=== PATIENT | male | born 1995 | race Caucasian/White ===

== ENCOUNTER 2017-08-05 16:54 | Emergency (ER) | payer OTHER ==
[~2017-08-05] VITALS: Ht 170.2 cm; Wt 69.0 kg
[2017-08-05 16:59] VITALS: BP 132/66; PULSE 86; RESP 16; TEMP 97.6; O2SAT 97
[2017-08-05] MEDS ORDERED: PROPARACAINE HCL 0.5% OPHT SOLN 15 ML BTL EACH EYE ONE (17:15)
[2017-08-05] MEDS ORDERED: ERYTOIN10 RIGHT EYE (17:34)
[2017-08-05] MEDS ORDERED: KETO1SOL3 RIGHT EYE (17:34)
--- NOTE | 2017-08-05 17:46 | PD ---
HPI Chief Complaint: Eye Problems/Injury Time Seen by Provider: 17:25 Travel History International Travel<30 days: No Contact w/Intl Traveler<30days: No Traveled to known affect area: No History of Present Illness HPI 22-year-old male presents to the emergency department for evaluation of right eye irritation that started as he was using a table saw, cutting wood today. Patient states that he felt like he got something in his eye. Patient states that he has irritation, more than pain. Patient denies photophobia, blurred vision, headache. Says he did try to irrigate however, this is not completely reduced his symptoms. He does not wear contact lenses or corrective lenses. Denies chronic medical issues medication use. He actually rode his motorcycle to the emergency department today. [facility] Past Medical History Medical History: Denies Significant Hx Tetanus Vaccination: < 5 Years Influenza Vaccination: Yes ?: Not Past Surgical History Tonsillectomy: Yes Social History Alcohol Use: Yes (SOCIAL) Tobacco Use: No Substance Use: No Allergies-Medications (Allergen,Severity, Reaction): Coded Allergies: No Known Allergies (Unverified , 08/05/17) Reported Meds & Prescriptions Reported Meds & Active Scripts Active Acular Opth Drops (Ketorolac Tromethamine) 0.5% Drops 1 Drop RIGHT EYE QID Erythromycin Opth Oint 5 Mg/Gm Oint 1 Applic RIGHT EYE BID 7 Days Ok to substitute solution or suspension as needed. Review of Systems Except as stated in HPI: all other systems reviewed are Neg Physical Exam Narrative GENERAL: Well-nourished, well-developed patient. SKIN: Focused skin assessment warm/dry. HEAD: Normocephalic. EYES: No scleral icterus. Mild scleral injection. No obvious foreign body. Noelle sign negative. No fluorescein uptake. NECK: Supple, trachea midline. No JVD or lymphadenopathy. CARDIOVASCULAR: Regular rate and rhythm without murmurs, gallops, or rubs. RESPIRATORY: Breath sounds equal bilaterally. No accessory muscle use. GASTROINTESTINAL: Abdomen soft, non-tender, nondistended. MUSCULOSKELETAL: No cyanosis, or edema. BACK: Nontender without obvious deformity. No CVA tenderness. Data Data Last Documented VS Vital Signs Date Time Temp Pulse Resp B/P (MAP) Pulse Ox O2 Delivery O2 Flow Rate FiO2 08/05/17 18:07 16 98 08/05/17 16:59 97.6 86 132/66 (88) Orders Orders Proparacaine 0.5% Opth Soln (Alcaine 0.5 (08/05/17 17:15) Eye Irrigation (08/05/17 17:37) Ed Discharge Order (08/05/17 17:53) [facility] Medical Decision Making Medical Screen Exam Complete: Yes Emergency Medical Condition: Yes Differential Diagnosis Right eye foreign body, corneal abrasion, corneal irritation, conjunctivitis Narrative Course 22-year-old male presents to the emergency department for evaluation of right eye irritation that started as he was using a table saw, cutting wood today. Patient states that he felt like he got something in his eye. Patient states that he has irritation, more than pain. Patient denies photophobia, blurred vision, headache. Says he did try to irrigate however, this is not completely reduced his symptoms. He does not wear contact lenses or corrective lenses. Denies chronic medical issues medication use. He actually rode his motorcycle to the emergency department today. Vital signs stable. Physical exam findings are reassuring. No fluorescein uptake. Noelle sign negative. PERRLA, EOMI. No obvious foreign body seen today. His eye was irrigated. Patient states that the proparacaine significantly reduced his discomfort. Patient will be discharged with erythromycin ophthalmic ointment and Acular. Patient advised to follow-up with an educational fundraising director, especially if his symptoms do not improve. Follow-up with primary care physician for further treatment and evaluation. Advised that if his vision worsen, sensation worsen, or if signs of infection develop to return to the emergency department immediately. Diagnosis Primary Impression: Corneal irritation of right eye Referrals: [facility] Departure Forms: Tests/Procedures Additional Instructions: Use medications as prescribed. Follow-up with an eye doctor within 1-2 weeks. If your symptoms persist or worsen return to the emergency department. Wear eye protection while working. Scripts Ketorolac Opth Drops (Acular Opth Drops) 0.5% Drops 1 DROP RIGHT EYE QID for Pain/Inflammation, #5 ML 0 Refills Prov: Will Mccabe MD 08/05/17 Erythromycin Opth Oint (Erythromycin Opth Oint) 5 Mg/Gm Oint 1 APPLIC RIGHT EYE BID for Infection for 7 Days, #1 TUBE 0 Refills Ok to substitute solution or suspension as needed. Prov: Will Mccabe MD 08/05/17 Disposition: 01 DISCHARGE HOME Condition: Stable Pam Carson Aug 05, 2017 17:46
== END 2017-08-05 18:15 | disposition home or self-care (01) ==
LOC: PHEFT 16:54
DX: S05.8X1A Other injuries of right eye and orbit, initial encounter (principal); W31.2XXA Contact with powered woodworking and forming machines, initial encounter
CPT/HCPCS: 99283